=== PATIENT | male | born 1980 | race Caucasian/White ===

== ENCOUNTER 2023-07-01 12:14 | Outpatient (CLI) | payer OTHER, SELFPAY | END 2023-07-01 12:15 | disposition home or self-care (01) | PROVIDERS: PCP Family Medicine; Visit Provider Family Medicine | DX: Z00.00 Encounter for general adult medical examination without abnormal findings (principal); Z13.6 Encounter for screening for cardiovascular disorders | CPT/HCPCS: 80048; 80061; 84460 ==

== ENCOUNTER 2025-02-21 11:25 | Outpatient (CLI) | payer OTHER, SELFPAY ==
--- NOTE | 2025-02-21 12:28 | P.ANES_ITS ---
Anesthesia Charges Start Date/Time Anesthesia Start Date: 02/21/25 Anesthesia Start Time: 12:00 Stop Date/Time Anesthesia Stop Date: 02/21/25 Anesthesia Stop Time: 12:32 Coding CPT Codes CPT Codes: PATTY LWR INTST SCR COLSC - [id number] ([id number]) P2 - PATIENT W/MILD SYST DISEASE, QX - TERMINAL SUPERINTENDENT SVC W/ MD MED DIRECTION, QK - SHIPPING COORDINATOR 2-4 CNCRNT ANES PROC
--- NOTE | 2025-02-21 12:28 | W.ANESCHARGE ---
Anesthesia Charges Start Date/Time Anesthesia Start Date: 02/21/25 Anesthesia Start Time: 12:00 Stop Date/Time Anesthesia Stop Date: 02/21/25 Anesthesia Stop Time: 12:32 Coding CPT Codes CPT Codes: PATTY LWR INTST SCR COLSC - [id number] ([id number]) P2 - PATIENT W/MILD SYST DISEASE, QX - PROGRAM SUPPORT CLERK SVC W/ MD MED DIRECTION, QK - BREAKFAST HOSTESS 2-4 CNCRNT ANES PROC
--- NOTE | 2025-02-21 13:22 | P.ANES_ITS ---
Anesthesia Charges Start Date/Time Anesthesia Start Date: 02/21/25 Anesthesia Start Time: 12:00 Stop Date/Time Anesthesia Stop Date: 02/21/25 Anesthesia Stop Time: 12:32 Coding CPT Codes CPT Codes: PATTY LWR INTST SCR COLSC - [id number] ([id number]) QK - SALES ENGINEER ACCOUNT MANAGER 2-4 CNCRNT PATTY PROC, QX - QUARRYMAN SVC W/ MD MED DIRECTION, P2 - PATIENT W/MILD SYST DISEASE
--- NOTE | 2025-02-21 13:22 | W.ANESCHARGE ---
Anesthesia Charges Start Date/Time Anesthesia Start Date: 02/21/25 Anesthesia Start Time: 12:00 Stop Date/Time Anesthesia Stop Date: 02/21/25 Anesthesia Stop Time: 12:32 Coding CPT Codes CPT Codes: PATTY LWR INTST SCR COLSC - [id number] ([id number]) QK - BIOLOGICAL SCIENCE TECHNICIAN FISH 2-4 CNCRNT PATTY PROC, QX - PEDIATRIC DIETICIAN SVC W/ MD MED DIRECTION, P2 - PATIENT W/MILD SYST DISEASE
== END 2025-02-21 11:26 | disposition home or self-care (01) ==
LOC: OP CLINIC 11:26
PROVIDERS: PCP Family Medicine; Visit Provider Surgery
DX: Z12.11 Encounter for screening for malignant neoplasm of colon (principal)
CPT/HCPCS: 00812; 45378; J2704